=== PATIENT | female | born 1970 | race African-American/Black ===

== ENCOUNTER → 2020-02-22 | Day surgery (SDC) | payer OTHER ==
[~2020-02-22] MED LIST: DICLOFENAC SODI75 MG PO; HCTZ12.5 MG PO; PERCOCET 5-3251 EACH PO; PROTONIX 40MG T40 MG PO; STOOL SOFTENER1 EACH PO
== END | disposition home or self-care (01) ==
LOC: FAS 09:26
DX: M16.12 Unilateral primary osteoarthritis, left hip (principal); K21.9 Gastro-esophageal reflux disease without esophagitis; Z87.891 Personal history of nicotine dependence; Z79.899 Other long term (current) drug therapy
CPT/HCPCS: 76000; J1040; J1885; J2001; J2250; J2704; J3010; J7120; Q9967

== ENCOUNTER → 2021-02-07 | Day surgery (SDC) | payer OTHER ==
[~2021-02-07] VITALS: Ht 165.1 cm; Wt 83.9 kg
[~2021-02-07] MED LIST changes: +FLUOXETINE HCL10 MG PO; +IBUPROFEN800 M1 PO; +SINEQUAN10 MG PO; +STELARA90 MG/1 ML IJ
[2021-02-07 07:55] LABS: BUN/CREAT RATIO (CALC) 18.9 RATIO; CREATININE 0.74 mg/dL (0.51-0.95); POTASSIUM 3.4 mmol/L (3.5-5.1)
== END | disposition home or self-care (01) ==
LOC: FAS 06:50
PROVIDERS: Anesthesiology
DX: M16.12 Unilateral primary osteoarthritis, left hip (principal); M70.62 Trochanteric bursitis, left hip; I10 Essential (primary) hypertension; K21.9 Gastro-esophageal reflux disease without esophagitis; Z79.899 Other long term (current) drug therapy
CPT/HCPCS: 36415; 73501; 76000; 80048; 93005; J1040; J2250; J2704; J7120; Q9967

== ENCOUNTER 2021-09-11 06:29 | Day surgery (SDC) | payer OTHER ==
[~2021-09-11] VITALS: Ht 165 cm; Wt 79.0 kg
[~2021-09-11 06:29] MED LIST changes: +CITALOPRAM HBR20 MG PO; +CYCLOBENZAPRINE10 MG PO
[2021-09-11] MEDS ORDERED: VITAMIN D325 MC2 PO (06:56)
[2021-09-11] MEDS ORDERED: CHILDREN'S ASPI81 MG PO (10:17)
[2021-09-12 06:42] LABS: BASOPHIL 0.1 % (0-2); EOSINOPHIL 0.3 % (0-5); HCT 34.1 % (37.0-47.0); HGB 10.9 g/dl (12.5-16.0); LYMPHOCYTE 21.6 % (15-48); MCH 27.9 pg (25.0-31.0); MCV 87.4 fL (78.0-100.0); MONOCYTE 8.3 % (0-12); MPV 8.8 fL (6.0-9.5); NEUTROPHIL 69.5 % (41-80); NRBC 0; PLT 341 K/uL (150-400); RDW 14.3 % (11.5-14.0); WBC 8.7 K/uL (4.0-10.5)
[2021-09-12 07:04] LABS: BUN/CREAT RATIO (CALC) 11.8 RATIO; CREATININE 0.76 mg/dL (0.51-0.95); POTASSIUM 3.6 mmol/L (3.5-5.1)
[2021-09-12] MEDS ORDERED: FEOSOL325 MG PO (08:47)
[2021-09-12] MEDS ORDERED: ONDANSETRON HCL4 MG PO (08:47)
== END 2021-09-12 11:30 | disposition home or self-care (01) ==
LOC: FAS 06:29 → FOR 08:30 → FAS 08:30 → FOR 09:00 → FMS 09:54 → FAS 09-12 11:30
PROVIDERS: Orthopaedic Surgery
DX: M16.12 Unilateral primary osteoarthritis, left hip (principal); I10 Essential (primary) hypertension; K21.9 Gastro-esophageal reflux disease without esophagitis; Z87.891 Personal history of nicotine dependence; Z88.5 Allergy status to narcotic agent; Z79.899 Other long term (current) drug therapy
CPT/HCPCS: 36415; 73501; 76000; 80048; 85025; 86850; 86900; 86901; 94010; 94762; 97110; 97162; 97165; 97530-GP; C1776; J0171; J0697; J1100; J1170; J1885; J2250; J2270; J2405; J2704; J2710; J2795; J3010; J7120